=== PATIENT | female | born 1990 | race African-American/Black ===

== ENCOUNTER 2021-05-10 15:16 | Emergency (ER) | payer BC, SELFPAY ==
[~2021-05-10] VITALS: Ht 157.5 cm; Wt 66.2 kg
[2021-05-10 15:20] VITALS: BP_SYST 141
[2021-05-10] MEDS ORDERED: ONDANSETRON HCL 4 MG/2 ML VIAL IVP ONE ×2 (15:45→18:00)
[2021-05-10] MEDS ORDERED: NACL 0.9% 1,000 ML IV ONE ×2 (15:45→18:15)
[2021-05-10] MEDS ORDERED: MORPHINE 4 MG INJ. 4 MG/ML VIAL IVP ONE ×2 (15:45→18:00)
[2021-05-10 16:17] LABS: BILIRUBIN,URINE 1+ (NEGATIVE); COLOR,URINE YELLOW (YELLOW); GLUCOSE,URINE NEGATIVE (NEGATIVE); KETONES,URINE NEGATIVE (NEGATIVE); LEUKOCYTE ESTERASE ,URINE 2+ (NEGATIVE); NITRITE, URINE POSITIVE (NEGATIVE); PH,URINE 7.5 (5.0-8.0); PROTEIN URINE TRACE (NEGATIVE)
[2021-05-10 16:22] LABS: BLOOD, URINE TRACE (NEGATIVE)
[2021-05-10 16:23] LABS: CLARITY/URINE HAZY (CLEAR)
--- NOTE | 2021-05-10 16:31 | NUR ---
PT IN [place]
[2021-05-10 16:40] LABS: BACTERIA,URINE MANY /HPF (None Seen); RBC,URINE 0-3 /HPF (0-3); WBC,URINE 20-50 /HPF (0-3)
[2021-05-10 16:41] LABS: MUCUS,URINE 1+ /LPF (None Seen)
[2021-05-10] MEDS ORDERED: ACETAMINOPHEN 500 MG TABLET ONE (16:58)
--- NOTE | 2021-05-10 17:00 | NUR ---
PT PLACED IN ROOM 7, IV SL TO RT AC, MEDICATED ORDERED. PT FEBRILE T 103.1 DR GUEVARA MADE AWARE.
--- NOTE | 2021-05-10 17:03 | NUR ---
PT COMES TO ER WITH C/O RT LOWER ABDOMINAL PAIN X 3 DAYS, NON RADIATING /, WORSENING LAST NIGHT WITH MILD DYSURIA. PT CURRENTLY FEBERILE AND SHE STATES HER PCP STATES IT MIGHT BE APPENDICITIS. PT ALSO RPEORTS NAUSEA/VOMTITING X1. DR GUEVARA MADE AWARE.
[2021-05-10 17:49] LABS: CALCIUM 8.3 mg/dL (8.4-11.0); CREATININE 0.74 mg/dL (0.55-1.30)
[2021-05-10 17:54] LABS: ALBUMIN 2.6 g/dL (3.4-4.8); TOTAL BILIRUBIN 0.8 mg/dL (0.0-1.0)
--- NOTE | 2021-05-10 17:57 | NUR ---
PT UP TO BATHROOM, STEADY GAIT. REPORTS PAIN MEDICATION HELPED, BBUT NOW MORE PAIN. DR GUEVARA MADE AWARE, ORDERS RECEIEVED.
[2021-05-10 18:02] LABS: BASOPHILS % (AUTO) 0.2 % (0.0-2.0); HEMATOCRIT 38.3 % (36-48); HEMOGLOBIN 12.2 g/dL (12.0-16.0); LYMPHOCYTES # (AUTO) 1.1 K/uL (1.0-5.5); LYMPHOCYTES % (AUTO) 6.5 % (20.5-51.5); MEAN CORPUSCULAR HEMOGLOBIN 26 pg (27-31); MEAN CORPUSCULAR HGB CONC 32 % (32-36); MEAN CORPUSCULAR VOLUME 80 fL (79.0-98.0); MONOCYTES # (AUTO) 1.9 K/uL (0.0-1.0); MONOCYTES % (AUTO) 11.3 % (1.7-9.3); NEUTROPHILS # (AUTO) 13.7 K/uL (1.8-7.7); PLATELET COUNT (AUTO) 172 K/uL (130-430); RED BLOOD CELL COUNT(AUTO) 4.77 MIL/uL (4.2-6.2); RED CELL DISTRIBUTION WIDTH 15.1 % (9.0-15.0); WHITE BLOOD COUNT (AUTO) 16.7 K/uL (4.8-10.8)
[2021-05-10] MEDS ORDERED: cefTRIAXone 1 GM in D5W 50 ML IV ONE (19:15)
--- NOTE | 2021-05-10 19:25 | NUR ---
Pt taken to Radiology in stable condition
[2021-05-10] MEDS ORDERED: cefTRIAXone 1 GM VIAL ONE (19:45)
--- NOTE | 2021-05-10 20:15 | NUR ---
VSS no s/s of acute distress Resting on gurney rails up
--- NOTE | 2021-05-10 21:25 | NUR ---
Pt Verbalized feeling a little better, VSS no s/s of acute distress
[2021-05-10] MEDS ORDERED: ONDA-8 TL (21:33)
[2021-05-10] MEDS ORDERED: POLY17PO4 PO (21:33)
[2021-05-10] MEDS ORDERED: ACET-2634 PO (21:33)
[2021-05-10] MEDS ORDERED: CEPH-548 PO (21:34)
[2021-05-10 22:05] VITALS: BP_SYST 139
--- NOTE | 2021-05-10 22:05 | NUR ---
Patient given written and verbal discharge instructions and verbalizes understanding. ER MD discussed with patient the results and treatment provided. Patient in stable condition. ID arm band removed. IV catheter removed intact and dressing applied, no active bleeding. Rx of Miralax, Tylenol, and Zofran given. Patient educated on pain management and to follow up with PMD. Pain Scale 0/10 Opportunity for questions provided and answered. Medication side effect fact sheet provided.
== END 2021-05-10 22:05 | disposition home or self-care (01) ==
LOC: SED 15:16
DX: N39.0 Urinary tract infection, site not specified (principal); N83.201 Unspecified ovarian cyst, right side; K80.20 Calculus of gallbladder without cholecystitis without obstruction; K59.00 Constipation, unspecified
CPT/HCPCS: 36415; 74177; 76376; 76700; 76830; 76857; 80053; 81000; 81025; 83690; 85025; 87086; 96361; 96365; 96374; 96375; 96376; 99285; J0696; J2270; J2405; Q9967; 96366

== ENCOUNTER 2022-09-03 14:03 | Emergency (ER) | payer BC ==
[~2022-09-03] VITALS: Ht 157.5 cm; Wt 63.5 kg
[~2022-09-03 14:03] MED LIST: ACET-2634 PO; CEPH-548 PO; ONDA-8 TL; POLY17PO4 PO
[2022-09-03 14:05] VITALS: BP_SYST 115
== END 2022-09-03 15:51 | disposition home or self-care (01) ==
LOC: SED 14:03
DX: Z48.02 Encounter for removal of sutures (principal)
CPT/HCPCS: 99281